=== PATIENT | male | born 1965 | race African-American/Black ===

== ENCOUNTER 2021-03-20 08:35 | Emergency (ER) | payer MEDICAID ==
[~2021-03-20] VITALS: Ht 188 cm; Wt 90.0 kg
[2021-03-20] MEDS ORDERED: CEPH500T MT (11:32)
[2021-03-20 11:45] VITALS: BP 129/75
== END 2021-03-20 11:45 | disposition home or self-care (01) ==
LOC: ER 08:35
DX: R59.1 Generalized enlarged lymph nodes (principal); Z86.39 Personal history of other endocrine, nutritional and metabolic disease
CPT/HCPCS: 76536; 87070; 87430; 99284